=== PATIENT | male | born 1940 | race Caucasian/White ===

== ENCOUNTER 2018-02-28 18:48 | Emergency (ER) | payer MEDICARE ==
[~2018-02-28] VITALS: Ht 167.6 cm; Wt 95.0 kg
[2018-02-28 19:07] VITALS: BP 228/108; PULSE 68; RESP 18; TEMP 97.7; O2SAT 98
--- NOTE | 2018-02-28 19:39 | PD ---
HPI Chief Complaint: Pain: Acute or Chronic Time Seen by Provider: 19:16 Travel History International Travel<30 days: No Contact w/Intl Traveler<30days: No Traveled to known affect area: No History of Present Illness HPI 78-year-old male complains of left knee pain. Patient states that the knee pain started about 2 months ago. Patient denies any injury to that. Patient states that he was walking and started having sharp pain localized to left knee. Patient denies any pain radiation. Patient states that the pain is worse with weightbearing. Patient denies any pain with movement. Patient states that he has occasional swelling of the left knee. Patient denies any fever chills. Patient states that he has not seen a physician for the past 8 years. Patient does not know whether he had any history and hypertension or diabetes. Patient has not had his blood pressure check for long time. Patient denies any headache. Patient denies any chest pain or shortness of breath. Patient denies abdominal pain. Patient denies any focal weakness or numbness of the extremity. PFSH Past Medical History Immunizations Current: Yes Tetanus Vaccination: Unknown Influenza Vaccination: No Social History Alcohol Use: Yes (occ) Tobacco Use: Yes Substance Use: No Allergies-Medications (Allergen,Severity, Reaction): Coded Allergies: No Known Allergies (Unverified , 02/28/18) Review of Systems General / Constitutional: No: Fever Eyes: No: Visual changes HENT: No: Headaches Cardiovascular: No: Chest Pain or Discomfort Respiratory: No: Shortness of Breath Gastrointestinal: No: Abdominal Pain Genitourinary: No: Dysuria Musculoskeletal: Positive: Pain Skin: No Rash Neurologic: No: Weakness Psychiatric: No: Depression Endocrine: No: Polydipsia Hematologic/Lymphatic: No: Easy Bruising Physical Exam Narrative GENERAL: Well-nourished, well-developed patient. SKIN: Focused skin assessment warm/dry. HEAD: Normocephalic. EYES: No scleral icterus. No injection or drainage. NECK: Supple, trachea midline. No JVD or lymphadenopathy. CARDIOVASCULAR: Regular rate and rhythm without murmurs, gallops, or rubs. RESPIRATORY: Breath sounds equal bilaterally. No accessory muscle use. GASTROINTESTINAL: Abdomen soft, non-tender, nondistended. MUSCULOSKELETAL: No cyanosis, or edema. Patient has mild tenderness on palpation medial collateral ligament area of the left knee. Full range of motion of the left knee. Knee joint stable. No effusion noted. BACK: Nontender without obvious deformity. No CVA tenderness. Neurologic exam normal. Data Data Last Documented VS Vital Signs Date Time Temp Pulse Resp B/P (MAP) Pulse Ox O2 Delivery O2 Flow Rate FiO2 02/28/18 19:07 97.7 68 18 228/108 (148) 98 Orders Orders Complete Blood Count With Diff (02/28/18 19:31) Basic Metabolic Panel (Bmp) (02/28/18 19:31) Iv Access Insert/Monitor (02/28/18 19:31) Ecg Monitoring (02/28/18 19:31) Knee, Ltd (1 Or 2vws) (02/28/18 19:32) Hydralazine Inj (Apresoline Inj) (02/28/18 20:15) Labs Laboratory Tests Test 02/28/18 19:40 White Blood Count 8.6 TH/MM3 Red Blood Count 4.97 MIL/MM3 Hemoglobin 15.4 GM/DL Hematocrit 46.7 % Mean Corpuscular Volume 93.8 FL Mean Corpuscular Hemoglobin 31.0 PG Mean Corpuscular Hemoglobin Concent 33.1 % Red Cell Distribution Width 13.0 % Platelet Count 320 TH/MM3 Mean Platelet Volume 8.7 FL Neutrophils (%) (Auto) 64.4 % Lymphocytes (%) (Auto) 25.5 % Monocytes (%) (Auto) 7.0 % Eosinophils (%) (Auto) 2.3 % Basophils (%) (Auto) 0.8 % Neutrophils # (Auto) 5.5 TH/MM3 Lymphocytes # (Auto) 2.2 TH/MM3 Monocytes # (Auto) 0.6 TH/MM3 Eosinophils # (Auto) 0.2 TH/MM3 Basophils # (Auto) 0.1 TH/MM3 CBC Comment DIFF FINAL Differential Comment Blood Urea Nitrogen 29 MG/DL Creatinine 1.28 MG/DL Random Glucose 133 MG/DL Calcium Level 8.8 MG/DL Sodium Level 141 MEQ/L Potassium Level 4.1 MEQ/L Chloride Level 107 MEQ/L Carbon Dioxide Level 24.3 MEQ/L Anion Gap 10 MEQ/L Estimat Glomerular Filtration Rate 54 ML/MIN MDM Medical Decision Making Medical Screen Exam Complete: Yes Emergency Medical Condition: Yes Interpretation(s) Last Impressions Knee X-Ray 02/28/181931 Signed Impressions: CONCLUSION: Mild osteoarthritis. Mild chondrocalcinosis. Bone spurs of the patella. No acut e bony abnormality. 20:14 PM.. CBC within normal limits. BMP with BUN at 29. Creatinine 1.28. GFR 54. Differential Diagnosis Differential diagnosis including osteoarthritis, bony injury, ligament injury, new onset hypertension. Narrative Course 78-year-old male with left knee pain and elevated blood pressure. No history of hypertension in the past. Hydralazine 10 mg IV given. Diagnosis Primary Impression: Arthralgia of left knee Additional Impression: Hypertension Qualified Codes: I10 - Essential (primary) hypertension Patient Instructions: General Instructions Additional Instructions: Lisinopril as directed. Ibuprofen as needed for left knee pain. Follow-up with orthopedist. Check blood pressure daily. Return if persistent elevated blood pressure. Med/Other Pt SpecificInfo: Prescription(s) given Scripts Ibuprofen (Ibuprofen) 600 Mg Tab 600 MG PO TID for Pain, #30 TAB 0 Refills Prov: Santos Porter MD 02/28/18 Amlodipine (Amlodipine) 5 Mg Tab 5 MG PO DAILY for Blood Pressure Management, #30 TAB 0 Refills Prov: Santos Porter MD 02/28/18 Lisinopril (Lisinopril) 20 Mg Tab 20 MG PO DAILY, #30 TAB 0 Refills Prov: Santos Porter MD 02/28/18 Disposition: 01 DISCHARGE HOME Condition: Stable Santos Porter MD Feb 28, 2018 19:39
[2018-02-28 19:48] LABS: AUTOMATED NEUTROPHIL # 5.5 TH/MM3 (1.8-7.7); BASOPHIL # 0.1 TH/MM3 (0-0.2); BASOPHIL % 0.8 % (0.0-2.0); EOSINOPHIL # 0.2 TH/MM3 (0-0.4); EOSINOPHIL % 2.3 % (0.0-4.0); HEMATOCRIT 46.7 % (39.0-51.0); HEMOGLOBIN 15.4 GM/DL (13.0-17.0); LYMPH % 25.5 % (9.0-44.0); LYMPHOCYTE # 2.2 TH/MM3 (1.0-4.8); MEAN CELL VOLUME 93.8 FL (80.0-100.0); MEAN CORPUSCULAR HGB CONC 33.1 % (32.0-36.0); MEAN PLATELET VOLUME 8.7 FL (7.0-11.0); MONOCYTE # 0.6 TH/MM3 (0-0.9); NEUT % 64.4 % (16.0-70.0); PLATELET COUNT 320 TH/MM3 (150-450); RED BLOOD COUNT 4.97 MIL/MM3 (4.50-5.90); WHITE BLOOD COUNT 8.6 TH/MM3 (4.0-11.0)
--- NOTE | 2018-02-28 20:09 | RADRPT ---
EXAM DATE: 02/28/2018 7:46 PM EDT AGE/SEX: 78 years / Male INDICATIONS: Left knee pain with weight bearing, denies injury CLINICAL DATA: This is the patient's initial encounter. Patient reports that signs and symptoms have been present for 2 months and indicates a pain score of 8/10. MEDICAL/SURGICAL HISTORY: None. None. COMPARISON: No prior exams available for comparison. FINDINGS: Bony structures are intact and in normal alignment. Joints are intact without dislocation or signifi cant arthropathy. Osseous density is normal. Soft tissues are unremarkable. No radiopaque foreign bodies seen. CONCLUSION: Mild osteoarthritis. Mild chondrocalcinosis. Bone spurs of the patella. No acute bony abnormality. Electronically signed by: Juan A Jaramillo MD 02/28/2018 8:08 PM EDT
[2018-02-28 20:10] LABS: BICARBONATE 24.3 MEQ/L (21.0-32.0); CALCIUM 8.8 MG/DL (8.5-10.1); CREATININE 1.28 MG/DL (0.60-1.30)
[2018-02-28] MEDS ORDERED: hydrALAZINE HCL 20 MG/ML VIAL IV PUSH ONE (20:15)
[2018-02-28] MEDS ORDERED: LISI-515 PO (20:18)
[2018-02-28] MEDS ORDERED: AMLO5TAB2 PO (20:19)
[2018-02-28] MEDS ORDERED: IBUP-232 PO (20:19)
[2018-02-28] MEDS ORDERED: cloNIDine HCL 0.2 MG TAB PO ONE (20:30)
[2018-02-28 20:46] VITALS: BP 228/109; PULSE 60; RESP 16; O2SAT 100
[2018-02-28 21:37] VITALS: BP 200/101
== END 2018-02-28 22:01 | disposition home or self-care (01) ==
LOC: NEPD 18:48
DX: M25.562 Pain in left knee (principal); I10 Essential (primary) hypertension; Z72.0 Tobacco use
CPT/HCPCS: 73560; 80048; 85025; 99284